=== PATIENT | female | born 1960 | race Hispanic/Latino ===

== ENCOUNTER 2024-10-31 23:32 | Emergency (ER) | payer MEDICARE, OTHER ==
[~2024-10-31] VITALS: Ht 160 cm; Wt 106.0 kg
[2024-11-01] MEDS: METOCLOPRAMIDE INJ 10MG/2ML VIAL IV ONE (01:35)
[2024-11-01] MEDS: NS (Normal Saline) 0.9% 1,000 ML IV ONE (01:36)
[2024-11-01 01:47] LABS: HEMATOCRIT 38.9 % (36.0-47.0); HEMOGLOBIN 12.4 g/dl (12.0-15.5); MEAN CORPUSCULAR HEMOGLOBIN 28.4 pg (27.0-33.0); MEAN CORPUSCULAR HGB CONC 31.9 g/dl (32.0-36.5); MEAN CORPUSCULAR VOLUME 89.2 fl (80.0-96.0); PLATELET COUNT, AUTOMATED 178 10^3/uL (150-450); RED BLOOD COUNT 4.36 10^6/uL (4.00-5.40)
[2024-11-01 02:26] LABS: ATYPICAL LYMPH 9 % (0-5); LYMPHOCYTES 56 % (16-44); MONOCYTES 7 % (0-5); NEUTROPHILS 28 % (28-66)
[2024-11-01 02:28] LABS: ANISOCYTOSIS 1+
[2024-11-01 02:29] LABS: PLATELET ESTIMATE NORMAL (NORMAL); POLYCHROMASIA 1+
[2024-11-01 03:47] LABS: LIPASE 45 U/L (12-53)
[2024-11-01 03:49] LABS: ALBUMIN 2.9 G/DL (3.2-5.2); ALKALINE PHOSPHATASE 97 U/L (35-104); ALT/SGPT 64 U/L (7.0-40); AST/SGOT 59 U/L (<34); BILIRUBIN,DIRECT 0.3 MG/DL (<0.4); BILIRUBIN,TOTAL 0.6 MG/DL (0.3-1.2); BLOOD UREA NITROGEN 12 MG/DL (9-23); CARBON DIOXIDE LEVEL 26 MMOL/L (20-31); CHLORIDE LEVEL 110 MMOL/L (98-107); CREATININE FOR GFR 0.71 MG/DL (0.55-1.30); GLOMERULAR FILTRATION RATE > 60.0 (>45); GLUCOSE, FASTING 96 MG/DL (74-106); POTASSIUM SERUM 3.5 MMOL/L (3.5-5.1); SODIUM LEVEL 146 MMOL/L (136-145); TOTAL PROTEIN 6.2 G/DL (5.7-8.2)
[2024-11-01 05:01] VITALS: BP 129/64
[2024-11-01 05:17] VITALS: O2SAT 97
[2024-11-01] MEDS ORDERED: REGL10TA6 PO (05:18)
[2024-11-01 05:38] VITALS: TEMP 99.1
== END 2024-11-01 05:45 | disposition home or self-care (01) ==
LOC: M ED 23:32
DX: K31.84 Gastroparesis (principal); I10 Essential (primary) hypertension; Z85.038 Personal history of other malignant neoplasm of large intestine; Z79.899 Other long term (current) drug therapy
CPT/HCPCS: 36415; 80048; 80076; 83690; 83735; 85025; 86850; 86900; 86901; 93005; 96361; 96374; 99285; J2765